=== PATIENT | male | born 1955 | race Caucasian/White ===

== ENCOUNTER → 2018-02-27 | Outpatient (CLI) | payer BC ==
[~2018-02-27] MED LIST: IOPAMIDOL 370 MG/ML 200 ML INFUS..BTL INJ ONE; SODIUM CHLORIDE 0.9% 100 ML 100 ML ONE
[2018-02-27 09:47] LABS: BLOOD UREA NITROGEN 19 mg/dL (7-26); BUN/CREATININE RATIO 16 (6-25); CALCIUM 9.4 mg/dL (8.4-10.2); CARBON DIOXIDE 23 mmol/L (22-29); CHLORIDE 103 mmol/L (98-107); CREATININE, SERUM 1.16 mg/dL (0.72-1.25); EST GLOMERULAR FILTRATION RATE > 60 ML/MIN (60-); GLUCOSE 237 mg/dL (74-118); SODIUM 137 mmol/L (136-145)
--- NOTE | 2018-02-27 11:12 | Diagnostic Imaging Report ---
PROCEDURE:CT ANGIO CHEST W/ WO COMPARISON:01/19/2017. INDICATIONS:AORTIC ANEURYSM TECHNIQUE: Multi-detector CT technology with Dose Reduction was employed. Images were obtained after the administration of 100 cc Isovue-370 intravenously. For optimization of anatomic evaluation, multiplanar and volume rendering reconstructions were performed. Advanced 3-D off-line postprocessing were performed on a dedicated stand-alone workstation under the direct supervision of the interpreting physician. DLP: 452.38 mGy-cm FINDINGS: Vasculature: Diameter. measurements of the thoracic aorta are as follows: 2.9 cm At the aortic annulus 5.1 cm At the sinuses of Valsalva (the sinotubular junction is preserved) 4.6 cm At the mid ascending aorta 4.1 cm At the distal ascending aorta 3.2 cm At the mid transverse arch 3.3 cm At the proximal descending thoracic aorta 2.4 cm At the diaphragmatic hiatus There is no acute aortic pathology such as dissection, intramural hematoma, or pseudoaneurysm. Atherosclerotic coronary artery calcifications of the left anterior descending coronary artery as well as atherosclerotic calcification of the great vessel origins again noted. As before, the right coronary artery is poorly visualized. The pulmonary outflow tract is of normal caliber. No central pulmonary embolus. Lungs: The lungs are well-inflated. 4 mm lingular groundglass nodule seen on series 5 image 36 is unchanged. Minimal linear atelectasis in the lingula. No consolidation or bronchiectasis. Mediastinum: The visualized portions of the thyroid gland appear normal. No axillary, hilar, or mediastinal lymphadenopathy. No pericardial effusion. Upper abdomen: Visualized portions of the liver, pancreatic tail, and adrenal glands are unremarkable. Left hepatic artery is replaced to the left gastric artery and is partially visualized. Heterogeneity of splenic attenuation reflects arterial phase of scanning. Bones: No osseous destructive lesions. Mild degenerative disc changes of the thoracic spine. CONCLUSION: Mild aneurysmal dilatation of the ascending thoracic aorta, marginally increased from 4.9 cm maximum diameter on 01/19/2017 to 5.1 cm maximum diameter on the current examination. Atherosclerotic vascular disease including left anterior descending coronary artery calcifications. Continued stability of 4 mm groundglass nodule in the left upper lobe supports a benign inflammatory process. Continued attention on followup. Dictated by: Jesse Barajas M.D. on 02/27/2018 at 11:22 Electronically approved by: Jesse Barajas M.D. on 02/27/2018 at 11:22
== END ==
LOC: CT 08:32
PROVIDERS: ATTEND Internal Medicine Cardiovascular Disease
DX: I71.2 Thoracic aortic aneurysm, without rupture (principal)
CPT/HCPCS: 36415; 71275; 80048; Q9967

== ENCOUNTER → 2018-12-19 | Outpatient (CLI) | payer BC ==
--- NOTE | 2018-12-19 11:50 | Diagnostic Imaging Report ---
EXAM: CT Angiogram Chest WITH contrast INDICATION: Thoracic aortic aneurysm COMPARISON: CTA of 02/27/2018, CTA of 01/27/2016. TECHNIQUE: Chest was scanned utilizing a multidetector helical scanner from the lung apex through the level of the adrenal glands after administration of IV contrast in arterial phase. Coronal and sagittal reformations were obtained. CT Angiogram protocol was performed. 3D reconstruction was performed and viewed on dedicated workstation. Dose modulation, iterative reconstruction, and/or weight based adjustment of the mA/kV was utilized to reduce the radiation dose to as low as reasonably achievable. IV CONTRAST: 100 mL of Isovue 370 RADIATION DOSE: Total DLP: 477.8 mGy*cm COMPLICATIONS: None FINDINGS: VASCULAR FINDINGS: Thoracic aorta: Aortic Annulus: 2.5 cm Sinus of Valsalva: 4.9 cm Ascending Aorta at level of PA: 4.3 x 4.4 cm Mid Arch: 3.3 x 3.0 cm Proximal Descendin.2 x 3.3 cm Mid Descendin.8 x 2.9 cm Distal Descendin.7 x 2.6 cm Aortic hiatus: 2.4 x 2.4 cm. No evidence of aortic dissection. Mild scattered calcified and noncalcified atherosclerotic changes within the thoracic aorta. The main pulmonary artery is not enlarged. No evidence of central pulmonary embolism. LINES/ TUBES: None. LUNGS AND AIRWAYS: The central airways are patent. No evidence of pneumonia or pulmonary edema. No suspicious pulmonary nodules. PLEURA: The pleural spaces are clear. HEART AND MEDIASTINUM: The thyroid gland is normal. No mediastinal, hilar or axillary lymphadenopathy. No cardiomegaly or pericardial effusion. UPPER ABDOMEN: Limited non-contrast views of the upper abdomen show no abnormality within the partially visualized liver, spleen, pancreas, or adrenals. The kidneys are not visualized. BONES/SOFT TISSUES: No acute osseous abnormality. No suspicious lytic or blastic lesion. IMPRESSION: Ectatic thoracic aorta measuring up to 4.9cm at the sinus of Valsalva and 4.4cm at the ascending aorta. This is essentially unchanged from 02/27/2018 (based on today's measurements). No aortic dissection. Signed by: Bhavin Osborne MD on 12/19/2018 11:47 AM
== END ==
LOC: CT 10:29
PROVIDERS: ATTEND Internal Medicine Cardiovascular Disease
DX: I71.4 Abdominal aortic aneurysm, without rupture (principal)
CPT/HCPCS: 71275; Q9967